=== PATIENT | female | born 1985 | race Caucasian/White ===

== ENCOUNTER 2020-01-02 06:42 | Day surgery (SDC) | payer MEDICARE, OTHER ==
[~2020-01-02] VITALS: Ht 177.8 cm; Wt 101.3 kg
[~2020-01-02 06:42] MED LIST: ALDACTONE100 M1 PO; ESTRADIOL1 EAC6 TOP; ESTRADIOL2 MG PO; PROG100 PO
== END 2020-01-02 09:10 | disposition home or self-care (01) ==
LOC: ORSCSDS 06:42
PROVIDERS: Internal Medicine Gastroenterology
PROC: 0DJD8ZZ Inspection of Lower Intestinal Tract, Via Natural or Artificial Opening Endoscopic (ICD-10-PCS; principal; 2020-01-02 08:00)
DX: R19.7 Diarrhea, unspecified (principal); K92.1 Melena; Z79.899 Other long term (current) drug therapy
CPT/HCPCS: J0330; J0461; J2250; J2704; J7120

== ENCOUNTER → 2022-09-22 | Outpatient (CLI) | payer MEDICARE, OTHER | END | disposition home or self-care (01) | LOC: LAB SHORT 07:33 → PLD 07:33 | DX: D48.5 Neoplasm of uncertain behavior of skin (principal) | CPT/HCPCS: 88305 ==